=== PATIENT | male | born 1955 | race African-American/Black ===

== ENCOUNTER 2018-08-18 11:45 | Emergency (ER) | payer SELFPAY ==
[~2018-08-18] VITALS: Ht 182.9 cm; Wt 113.4 kg
[~2018-08-18 11:45] MED LIST: AML5T PO; Atorvastatin Calcium PO; DOXY-216 PO; INSU70IN9 SC; METF500T PO; Metronidazole PO
[2018-08-18 12:58] VITALS: BP 166/98
== END 2018-08-18 13:26 | disposition home or self-care (01) ==
LOC: ER 11:45
DX: L03.317 Cellulitis of buttock (principal); E11.9 Type 2 diabetes mellitus without complications; I10 Essential (primary) hypertension; Z76.0 Encounter for issue of repeat prescription

== ENCOUNTER 2019-03-16 12:30 | Emergency (ER) | payer MEDICAID ==
[~2019-03-16] VITALS: Ht 182.9 cm; Wt 114.3 kg
[~2019-03-16 12:30] MED LIST changes: -DOXY-216 PO; +DOXY-286 PO
[2019-03-16 12:52] VITALS: BP 111/69
== END 2019-03-16 16:29 | disposition home or self-care (01) ==
LOC: ER 12:30
DX: L02.92 Furuncle, unspecified (principal); F17.210 Nicotine dependence, cigarettes, uncomplicated; E11.9 Type 2 diabetes mellitus without complications; I10 Essential (primary) hypertension

== ENCOUNTER 2019-03-25 11:27 | Emergency (ER) | payer MEDICAID ==
[~2019-03-25] VITALS: Ht 182.9 cm; Wt 114.3 kg
[2019-03-25 11:46] VITALS: BP 131/88
[2019-03-25] MEDS ORDERED: LIDOCAINE 1% HCL (LOCAL ANESTH.) INJ 20ML MDV IJ ONE (12:15)
== END 2019-03-25 12:42 | disposition home or self-care (01) ==
LOC: ER 11:27
DX: L02.11 Cutaneous abscess of neck (principal); F17.210 Nicotine dependence, cigarettes, uncomplicated; E11.9 Type 2 diabetes mellitus without complications; I10 Essential (primary) hypertension
CPT/HCPCS: 10060; 99283; J2001

== ENCOUNTER 2019-03-29 07:06 | Emergency (ER) | payer MEDICAID ==
[~2019-03-29] VITALS: Ht 182.9 cm; Wt 114.3 kg
[2019-03-29 07:44] VITALS: BP 136/89
== END 2019-03-29 08:04 | disposition home or self-care (01) ==
LOC: ER 07:06
DX: Z48.01 Encounter for change or removal of surgical wound dressing (principal); E11.9 Type 2 diabetes mellitus without complications; I10 Essential (primary) hypertension; F17.210 Nicotine dependence, cigarettes, uncomplicated

== ENCOUNTER 2019-03-31 07:04 | Emergency (ER) | payer MEDICAID ==
[~2019-03-31] VITALS: Ht 182.9 cm; Wt 111.1 kg
[2019-03-31 07:52] VITALS: BP 125/80
== END 2019-03-31 08:26 | disposition home or self-care (01) ==
LOC: ER 07:04
DX: L02.11 Cutaneous abscess of neck (principal)

== ENCOUNTER 2021-11-23 12:54 | Emergency (ER) | payer OTHER, MEDICAID ==
[~2021-11-23] VITALS: Ht 180.3 cm; Wt 122.5 kg
[2021-11-23 13:59] VITALS: BP 104/69
[2021-11-23] MEDS ORDERED: KETOROLAC TROMETH 60MG/2ML VIAL IM ONE (14:00)
[2021-11-23] MEDS ORDERED: TRAM-297 PO (15:01)
== END 2021-11-23 15:21 | disposition home or self-care (01) ==
LOC: ER 12:54
DX: S29.012A Strain of muscle and tendon of back wall of thorax, initial encounter (principal); E11.9 Type 2 diabetes mellitus without complications; E78.5 Hyperlipidemia, unspecified; I10 Essential (primary) hypertension; F17.210 Nicotine dependence, cigarettes, uncomplicated; W01.0XXA Fall on same level from slipping, tripping and stumbling without subsequent striking against object, initial encounter; Y93.01 Activity, walking, marching and hiking; Y92.89 Other specified places as the place of occurrence of the external cause; Y99.8 Other external cause status
CPT/HCPCS: 71046; 71101; 96372; 99284; J1885

== ENCOUNTER 2023-09-16 12:17 | Emergency (ER) | payer OTHER, MEDICAID ==
[~2023-09-16] VITALS: Ht 180.3 cm; Wt 121.3 kg
[~2023-09-16 12:17] MED LIST changes: +TRAM-297 PO
[2023-09-16] MEDS: cefTRIAXone SOD 1,000 MG VL IM ONE (13:30)
[2023-09-16] MEDS: KETOROLAC TROMETH 30 MG/ML 1ML VIAL IM ONE (13:31)
[2023-09-16] MEDS: NEOMYCIN-BACITRACIN-POLYM UNITDOSE PKG TOP OINT TOP ONE (14:11)
[2023-09-16] MEDS ORDERED: CEPH500C PO (14:27)
[2023-09-16 14:29] VITALS: BP 106/69; PULSE 92; RESP 18; TEMP 98; O2SAT 97
== END 2023-09-16 14:36 | disposition home or self-care (01) ==
LOC: ER 12:17
DX: L02.11 Cutaneous abscess of neck (principal); E11.9 Type 2 diabetes mellitus without complications; I10 Essential (primary) hypertension; E78.5 Hyperlipidemia, unspecified; F17.210 Nicotine dependence, cigarettes, uncomplicated; Z79.4 Long term (current) use of insulin; Z79.899 Other long term (current) drug therapy
CPT/HCPCS: 10060; 96372; 99284; J0696; J1885

== ENCOUNTER 2023-09-20 10:05 | Emergency (ER) | payer OTHER, MEDICAID ==
[~2023-09-20] VITALS: Ht 180.3 cm; Wt 120.4 kg
[~2023-09-20 10:05] MED LIST changes: +CEPH500C PO
[2023-09-20 10:57] VITALS: PULSE 107; RESP 16; TEMP 97.4; O2SAT 96
[2023-09-20] MEDS: NEOMYCIN-BACITRACIN-POLYM UNITDOSE PKG TOP OINT TOP ONE (12:59)
[2023-09-20 13:26] VITALS: BP 131/76; PULSE 90; RESP 16; O2SAT 96
== END 2023-09-20 13:27 | disposition home or self-care (01) ==
LOC: ER 10:05
DX: Z48.00 Encounter for change or removal of nonsurgical wound dressing (principal); F17.210 Nicotine dependence, cigarettes, uncomplicated; E11.9 Type 2 diabetes mellitus without complications; E78.5 Hyperlipidemia, unspecified; I10 Essential (primary) hypertension